=== PATIENT | male | born 2000 | race African-American/Black ===

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

== ENCOUNTER → 2020-08-22 | Outpatient (CLI) | payer BC ==
[2020-08-22 15:38] LABS: BASOPHILS % 0.2 % (0.0-2.0); EOSINOPHILS % 3.1 % (0.0-5.0); HEMATOCRIT. 45.5 % (42.0-52.0); HEMOGLOBIN. 15.5 g/dL (14.0-18.0); LYMPHOCYTES % 51.2 % (20.0-50.0); MEAN CORPUSCULAR HEMOGLOBIN 29.2 pg (28.0-32.0); MEAN CORPUSCULAR VOLUME 85.8 fL (80.0-94.0); MEAN PLATELET VOLUME 9.8 fl (7.4-10.4); MONOCYTES % 8.9 % (2.0-8.0); NEUTROPHILS % 36.6 % (40.0-76.0); PLATELET 161 x1000/uL (130-400); RED CELL DISTRIBUTION WIDTH 12.9 % (11.6-14.6)
[2020-08-22 16:05] LABS: CHLORIDE 106 mEq/L (98-107)
[2020-08-22 16:12] LABS: GAMMA GLUTAMYL TRANSPEPTIDASE 39 IU/L (11-50)
== END | disposition home or self-care (01) ==
LOC: LAB 15:07
PROVIDERS: ATTEND Pediatrics Pediatric Gastroenterology
DX: B19.20 Unspecified viral hepatitis C without hepatic coma (principal)
CPT/HCPCS: 36415; 80053; 82977; 85025

== ENCOUNTER → 2021-08-04 | Outpatient (CLI) | payer BC ==
[2021-08-04 10:24] LABS: BASOPHILS % 0.2 % (0.0-2.0); EOSINOPHILS % 2.5 % (0.0-5.0); HEMOGLOBIN. 15.7 g/dL (14.0-18.0); MEAN CORPUSCULAR HEMOGLOBIN 29.2 pg (28.0-32.0); MEAN CORPUSCULAR VOLUME 85.5 fL (80.0-94.0); MEAN PLATELET VOLUME 9.2 fl (7.4-10.4); MONOCYTES % 8.7 % (2.0-8.0); NEUTROPHILS % 45.6 % (40.0-76.0); PLATELET 165 x1000/uL (130-400); RED BLOOD CELL COUNT 5.38 mill/uL (4.7-6.1); RED CELL DISTRIBUTION WIDTH 13.1 % (11.6-14.6)
[2021-08-04 10:34] LABS: CHLORIDE 106 mEq/L (98-107)
[2021-08-04 10:43] LABS: GAMMA GLUTAMYL TRANSPEPTIDASE 56 IU/L (11-50)
== END | disposition home or self-care (01) ==
LOC: LAB 09:45
DX: B19.20 Unspecified viral hepatitis C without hepatic coma (principal)
CPT/HCPCS: 36415; 80053; 82977; 83036; 85025

== ENCOUNTER 2023-04-15 20:26 | Emergency (ER) | payer BC, MEDICAID ==
[~2023-04-15] VITALS: Ht 182.9 cm; Wt 100.0 kg
[2023-04-15 20:41] VITALS: O2SAT 99
[2023-04-15] MEDS ORDERED: IBUP-2029 MT (21:39)
[2023-04-15] MEDS ORDERED: CYCL10TA21 MT (21:39)
[2023-04-15 21:45] VITALS: BP 136/77
[2023-04-15] MEDS ORDERED: KETOROLAC 60MG/2ML VIAL IM ONE (21:45)
[2023-04-15 22:37] VITALS: PULSE 96; RESP 18; TEMP 98.5
== END 2023-04-15 22:48 | disposition home or self-care (01) ==
LOC: ER 20:26
DX: M79.605 Pain in left leg (principal); M25.552 Pain in left hip; V49.59XA Passenger injured in collision with other motor vehicles in traffic accident, initial encounter; Y93.89 Activity, other specified; Y92.89 Other specified places as the place of occurrence of the external cause; Y99.8 Other external cause status
CPT/HCPCS: 73502; 73590; 96372; 99284; J1885; Z7610